=== PATIENT | male | born 1955 | race Caucasian/White ===

== ENCOUNTER 2018-10-03 07:55 | Day surgery (SDC) | payer BC ==
[~2018-10-03] VITALS: Ht 177.8 cm; Wt 117.0 kg
[~2018-10-03 07:55] MED LIST: AMLO5TAB6 PO; FLON1SPR; FLUORIDE TOOTHPASTE; LIDOCAINE 2% INJ 100 MG/5 ML SDV (FOR ANES.) As Ordered ONE; LR 1,000 ML IV ONE; MIDAZOLAM INJ 2 MG/2 ML VIAL (J2250) As Ordered ONE; PRIS50TA PO; PROPOFOL 200 MG/20 ML VIAL As Ordered ONE; ROCURONIUM BROMIDE 50 MG/5 ML VIAL As Ordered ONE; [UNRECOGNIZED DRUG - CODE] PO; ceFAZolin SOD 1 GM in D5W MINI-BAG PLUS 50 ML IV ONE; fentaNYL 250 MCG/5 ML INJECTION (J3010) As Ordered ONE
[2018-10-03] MEDS ORDERED: BUPIVACAINE/EPIN 0.25% 30 ML VIAL As Ordered ONE (09:18)
[2018-10-03] MEDS ORDERED: PHENYLephrine HCL 500 MCG/5 ML (100MCG/ML) SYRINGE (J2370) As Ordered ONE (10:00)
[2018-10-03] MEDS ORDERED: ROCURONIUM BROMIDE 50 MG/5 ML VIAL As Ordered ONE (10:20)
[2018-10-03] MEDS ORDERED: ONDANSETRON 4MG/2ML VIAL (J2405) As Ordered ONE (10:29)
[2018-10-03] MEDS ORDERED: KETOROLAC 60 MG/2 ML VIAL (J1885) As Ordered ONE (10:29)
[2018-10-03] MEDS ORDERED: dexameTHASONE 4 MG/ML 1ML VIAL (J1100) As Ordered ONE (10:29)
[2018-10-03] MEDS ORDERED: METOCLOPRAMIDE INJ 10MG/2ML VIAL (J2765) As Ordered ONE (10:29)
[2018-10-03] MEDS ORDERED: SUGAMMADEX SODIUM 500 MG/5 ML VIAL (BRIDION) As Ordered ONE (10:30)
[2018-10-03] MEDS ORDERED: ACETAMINOPHEN 1000MG 100ML IV BTL (OFIRMEV) (J0131 PER 10MG) As Ordered ONE (10:30)
--- NOTE | 2018-10-03 11:34 | RO ---
DATE OF PROCEDURE: 10/03/2018 PREOPERATIVE DIAGNOSIS: Right inguinal hernia. POSTOPERATIVE DIAGNOSIS: Right inguinal hernia (indirect with lipoma cord). PROCEDURE: SURGEON: Dre Cisneros MD BREAD OVEN OPERATOR: Vickie Kenny NP (Provided instrument exchange, mesh insertion, trocar insertion and removal, and abdominal wall closure.) ANESTHESIA: General endotracheal anesthesia. ESTIMATED BLOOD LOSS: Minimal. FLUIDS: Crystalloid. DISPOSITION: The patient was taken to the recovery room awake, alert, hemodynamically stable. BRIEF OPERATIVE SUMMARY: The patient was taken to the operating room and was general anesthesia. After adequate anesthesia and preoperative antibiotics were given, the patient was prepped and draped in the sterile fashion. Next, a supraumbilical incision was made with skin knife. Blunt dissection was carried down to fascia. Veress needle placed into the peritoneum, insufflated to 15 mm of pressure. A dilating 8 mm trocar was placed at this time and under direct visualization two lateral 8 mm trocars were placed. The patient had an indirect right inguinal hernia that was easily visualized on examination. The monopolar cut scissors were used to take down the peritoneum on this area because of his morbid obesity and significant preperitoneal fat. Going through this area it was a little difficult to get in the exact adequate plane, but staying relatively close to the peritoneum I was able to mobilize laterally and the appropriate area was gained to access into the area of Cy's ligament, pubis and vessels. Once this was mobilized medially and laterally, dissection was further performed around the cord structures. There was a great deal of thickening right on the medial aspect of the cord structures, and probably some fibrosis associated with this hernia. But in any case. after the hernia sac was mobilized off the cord structures there was a large lipoma cord that was visualized as well. This was mobilized off the cord structures as well and cauterized at its base, transected. Then, once the area was nicely opened up so that the mesh would fit nicely in this area the ProGrip mesh was placed in the preperitoneal space and pressed into the appropriate position. The lipoma was left in the preperitoneal space and the peritoneum closed just over the top of this. The trocars were removed all under direct visualization after the peritoneum was closed with running #3-0 V-Loc and all trocar sites were closed with #4-0 Vicryl. Steri-Strips and dry sterile dressing was applied. The patient was awakened, extubated, brought to the recovery room awake, alert, hemodynamically stable. Sponge and needle counts correct times two.
[2018-10-03 13:40] VITALS: BP 146/84
--- NOTE | 2018-10-03 23:27 | ECGEPIP ---
[facility] Test Date: 2018-10-03 Pat Name: DUTCH JAMA Department: Room: - Gender: Male Pm Head Cook: GINNY : 1955 Requested By: Dre Agustin Order Number: [id number] Reading MD: Charbel Cintron Measurements Intervals Rentz Rate: 58 P: 37 WI: 165 QRS: QRSD: 97 T: 12 QT: 408 QTc: 403 Interpretive Statements SINUS BRADYCARDIA Otherwise within normal limits. No prior ECG available for comparison at the time of interpretation. Electronically Signed on 10-03-2018 23:27:47 EDT by Charbel Cintron
== END 2018-10-03 14:00 | disposition home or self-care (01) ==
LOC: M SDC 07:55
PROVIDERS: ATTEND Surgery
DX: K40.90 Unilateral inguinal hernia, without obstruction or gangrene, not specified as recurrent (principal); D17.6 Benign lipomatous neoplasm of spermatic cord; I10 Essential (primary) hypertension; K21.9 Gastro-esophageal reflux disease without esophagitis; G47.30 Sleep apnea, unspecified; Z88.8 Allergy status to other drugs, medicaments and biological substances; Z79.899 Other long term (current) drug therapy
CPT/HCPCS: 49650; 93005; C1781; J0131; J0690; J1100; J1885; J2250; J2370; J2405; J2765; J3010